=== PATIENT | female | born 1995 | race Caucasian/White ===

== ENCOUNTER 2017-10-03 00:12 | Emergency (ER) | payer MEDICAID ==
[~2017-10-03] VITALS: Ht 152.4 cm; Wt 52.2 kg
[2017-10-03 00:20] VITALS: Ht 152.4 cm; Wt 52.2 kg
[2017-10-03 03:36] LABS: microscopic required? NO
[2017-10-03 03:42] LABS: urine erythrocyte NEGATIVE (NEGATIVE)
[2017-10-03 03:43] LABS: BASOPHIL % 0.4 % (0-2); PLATELET COUNT 249 x10^3mcL (130-400); RED CELL DISTRIBUTION WIDTH 12.9 % (11.5-14.5)
[2017-10-03 03:50] LABS: AMPHETAMINE QUAL UR NONE DETECTED (NEG <=1000)
[2017-10-03 03:58] LABS: CALCIUM 8.7 mg/dL (8.5-10.1); CARBON DIOXIDE 22.5 mmol/L (21-32); CHLORIDE SERUM 108 mmol/L (98-107); CREATININE SERUM 0.7 mg/dL (0.6-1.0); GFR1 > 60 mL/min; GLUCOSE SERUM 98 mg/dL (74-106); POTASSIUM SERUM 3.8 mmol/L (3.5-5.1); SODIUM SERUM 140 mmol/L (136-145)
[2017-10-03 04:11] LABS: ALBUMIN 3.6 g/dL (3.4-5.0); ALKALINE PHOSPHATASE 92 U/L (46-116); ALT/SGPT 22 U/L (14-59); AST/SGOT 21 U/L (15-37); BILIRUBIN TOTAL 0.26 mg/dL (0.20-1.00); TOTAL PROTEIN, SERUM 7.7 g/dL (6.4-8.2)
[2017-10-03 06:19] VITALS: BP 101/54
== END 2017-10-03 06:19 | disposition left against medical advice (07) ==
LOC: ED 00:12
PROVIDERS: Emergency Medicine
DX: R56.9 Unspecified convulsions (principal)
CPT/HCPCS: 36415; 84439; G0480

== ENCOUNTER 2018-01-30 22:14 | Emergency (ER) | payer MEDICAID ==
[~2018-01-30] VITALS: Ht 152.4 cm; Wt 49.9 kg
[2018-01-30 22:18] VITALS: Ht 152.4 cm; Wt 49.9 kg
[2018-01-30 22:59] VITALS: BP 113/77
== END 2018-01-30 22:59 | disposition home or self-care (01) ==
LOC: ED 22:14
DX: G40.909 Epilepsy, unspecified, not intractable, without status epilepticus (principal)

== ENCOUNTER 2018-11-29 19:32 | Emergency (ER) | payer MEDICAID ==
[2018-11-29 19:47] VITALS: Ht 152.4 cm
[2018-11-29 21:13] VITALS: BP 108/77
== END 2018-11-29 21:13 | disposition home or self-care (01) ==
LOC: ED 19:32
DX: R50.9 Fever, unspecified (principal); R42 Dizziness and giddiness; R56.9 Unspecified convulsions; Z76.0 Encounter for issue of repeat prescription

== ENCOUNTER 2019-05-01 10:08 | Emergency (ER) | payer MEDICAID ==
[~2019-05-01] VITALS: Ht 154.9 cm; Wt 51.9 kg
[2019-05-01 10:36] VITALS: Ht 154.9 cm; Wt 51.9 kg
[2019-05-01 12:26] LABS: BASOPHIL % 0.5 % (0-2); PLATELET COUNT 232 x10^3mcL (130-400); RED CELL DISTRIBUTION WIDTH 12.9 % (11.5-14.5)
[2019-05-01 13:00] LABS: CALCIUM 9.2 mg/dL (8.5-10.1); CHLORIDE SERUM 109 mmol/L (98-107); CREATININE SERUM 0.9 mg/dL (0.6-1.0); GFR1 > 60 mL/min; GLUCOSE SERUM 92 mg/dL (74-106); POTASSIUM SERUM 3.8 mmol/L (3.5-5.1); SODIUM SERUM 142 mmol/L (136-145)
[2019-05-01 13:04] LABS: ALKALINE PHOSPHATASE 89 U/L (46-116); ALT/SGPT 23 U/L (14-59); AST/SGOT 15 U/L (15-37); BILIRUBIN TOTAL 0.16 mg/dL (0.20-1.00); TOTAL PROTEIN, SERUM 7.9 g/dL (6.4-8.2)
[2019-05-01 14:13] VITALS: BP 101/75
== END 2019-05-01 14:13 | disposition home or self-care (01) ==
LOC: ED 10:08
PROVIDERS: Emergency Medicine
DX: G40.909 Epilepsy, unspecified, not intractable, without status epilepticus (principal)
CPT/HCPCS: 36415

== ENCOUNTER 2019-05-17 21:12 | Emergency (ER) | payer MEDICAID ==
[~2019-05-17] VITALS: Ht 152.4 cm; Wt 49.9 kg
[2019-05-17 21:21] VITALS: Ht 152.4 cm; Wt 49.9 kg
[2019-05-17 21:47] LABS: BASOPHIL % 0.3 % (0-2); PLATELET COUNT 213 x10^3mcL (130-400); RED CELL DISTRIBUTION WIDTH 13.3 % (11.5-14.5)
[2019-05-17 21:59] LABS: CHLORIDE SERUM 108 mmol/L (98-107); CREATININE SERUM 0.7 mg/dL (0.6-1.0); GFR1 > 60 mL/min; GLUCOSE SERUM 75 mg/dL (74-106); POTASSIUM SERUM 3.8 mmol/L (3.5-5.1); SODIUM SERUM 144 mmol/L (136-145)
[2019-05-17 22:03] LABS: ALBUMIN 3.8 g/dL (3.4-5.0); ALKALINE PHOSPHATASE 89 U/L (46-116); ALT/SGPT 24 U/L (14-59); AST/SGOT 20 U/L (15-37); BILIRUBIN TOTAL 0.2 mg/dL (0.20-1.00); LIPASE 97 IU/L (73-393); TOTAL PROTEIN, SERUM 7.7 g/dL (6.4-8.2)
[2019-05-18 00:11] VITALS: BP 101/67
== END 2019-05-18 00:11 | disposition home or self-care (01) ==
LOC: ED 21:12
PROVIDERS: Emergency Medicine
DX: K29.70 Gastritis, unspecified, without bleeding (principal)
CPT/HCPCS: 36415; Q0092

== ENCOUNTER 2019-07-23 18:54 | Emergency (ER) | payer MEDICAID ==
[~2019-07-23] VITALS: Ht 152.4 cm; Wt 53.8 kg
[2019-07-23 19:08] VITALS: Ht 152.4 cm; Wt 53.8 kg
[2019-07-23 19:49] LABS: BASOPHIL % 0.5 % (0-2); PLATELET COUNT 212 x10^3mcL (130-400)
[2019-07-23 19:59] LABS: CALCIUM 8.7 mg/dL (8.5-10.1); CHLORIDE SERUM 110 mmol/L (98-107); CREATININE SERUM 0.8 mg/dL (0.6-1.0); GFR1 > 60 mL/min; GLUCOSE SERUM 80 mg/dL (74-106); POTASSIUM SERUM 3.9 mmol/L (3.5-5.1); SODIUM SERUM 142 mmol/L (136-145)
[2019-07-23 20:04] LABS: ALBUMIN 3.6 g/dL (3.4-5.0); ALKALINE PHOSPHATASE 86 U/L (46-116); ALT/SGPT 17 U/L (14-59); AST/SGOT 18 U/L (15-37); BILIRUBIN TOTAL 0.2 mg/dL (0.20-1.00); TOTAL PROTEIN, SERUM 7.6 g/dL (6.4-8.2)
[2019-07-23 20:47] LABS: AMPHETAMINE QUAL UR NONE DETECTED (See below)
[2019-07-23 23:14] VITALS: BP 100/66
== END 2019-07-23 23:14 | disposition home or self-care (01) ==
LOC: ED 18:54
PROVIDERS: Emergency Medicine
DX: G40.909 Epilepsy, unspecified, not intractable, without status epilepticus (principal); N76.0 Acute vaginitis; B37.3 Candidiasis of vulva and vagina
CPT/HCPCS: 36415; 87491; 87591

== ENCOUNTER 2019-09-23 07:30 | Emergency (ER) | payer MEDICAID ==
[~2019-09-23] VITALS: Ht 152.4 cm; Wt 52.2 kg
[2019-09-23 07:36] VITALS: Ht 152.4 cm; Wt 52.2 kg
[2019-09-23 08:01] LABS: BASOPHIL % 0.6 % (0-2); PLATELET COUNT 229 x10^3mcL (130-400); RED CELL DISTRIBUTION WIDTH 13.1 % (11.5-14.5)
[2019-09-23 08:13] LABS: CARBON DIOXIDE 25.2 mmol/L (21-32); CHLORIDE SERUM 107 mmol/L (98-107); CREATININE SERUM 0.9 mg/dL (0.6-1.0); GFR1 > 60 mL/min; GLUCOSE SERUM 97 mg/dL (74-106); POTASSIUM SERUM 3.9 mmol/L (3.5-5.1); SODIUM SERUM 141 mmol/L (136-145)
[2019-09-23 08:19] LABS: ALBUMIN 3.9 g/dL (3.4-5.0); ALKALINE PHOSPHATASE 87 U/L (46-116); ALT/SGPT 22 U/L (14-59); AST/SGOT 17 U/L (15-37); BILIRUBIN TOTAL 0.3 mg/dL (0.20-1.00); TOTAL PROTEIN, SERUM 8.2 g/dL (6.4-8.2)
[2019-09-23 13:32] VITALS: BP 101/64
== END 2019-09-23 13:32 | disposition home or self-care (01) ==
LOC: ED 07:30
PROVIDERS: Emergency Medicine
DX: R56.9 Unspecified convulsions (principal); R42 Dizziness and giddiness
CPT/HCPCS: 36415

== ENCOUNTER 2019-10-20 19:07 | Emergency (ER) | payer MEDICAID ==
[~2019-10-20] VITALS: Ht 152.4 cm; Wt 54.5 kg
[2019-10-20 20:08] LABS: BASOPHIL % 0.6 % (0-2); PLATELET COUNT 226 x10^3mcL (130-400); RED CELL DISTRIBUTION WIDTH 12.9 % (11.5-14.5)
[2019-10-20 20:18] LABS: CALCIUM 9.2 mg/dL (8.5-10.1); CARBON DIOXIDE 26.1 mmol/L (21-32); CHLORIDE SERUM 104 mmol/L (98-107); CREATININE SERUM 0.9 mg/dL (0.6-1.0); GFR1 > 60 mL/min; GLUCOSE SERUM 93 mg/dL (74-106); SODIUM SERUM 141 mmol/L (136-145)
[2019-10-20 20:23] LABS: ALBUMIN 4.1 g/dL (3.4-5.0); ALKALINE PHOSPHATASE 94 U/L (46-116); ALT/SGPT 24 U/L (14-59); AST/SGOT 19 U/L (15-37); BILIRUBIN TOTAL 0.18 mg/dL (0.20-1.00); LIPASE 151 IU/L (73-393); TOTAL PROTEIN, SERUM 8.4 g/dL (6.4-8.2)
[2019-10-20 23:10] LABS: microscopic required? YES; urine erythrocyte 3+ (NEGATIVE)
[2019-10-21 00:20] VITALS: BP 111/74
== END 2019-10-21 01:16 | disposition home or self-care (01) ==
LOC: ED 19:07
PROVIDERS: Emergency Medicine
DX: N39.0 Urinary tract infection, site not specified (principal); K59.00 Constipation, unspecified; G47.00 Insomnia, unspecified
CPT/HCPCS: 36415

== ENCOUNTER 2019-12-19 06:45 | Emergency (ER) | payer MEDICAID ==
[~2019-12-19] VITALS: Ht 152.4 cm; Wt 59.0 kg
[2019-12-19 06:57] VITALS: Ht 152.4 cm; Wt 59.0 kg
[2019-12-19 07:44] LABS: BASOPHIL % 0.6 % (0-2); PLATELET COUNT 211 x10^3mcL (130-400); RED CELL DISTRIBUTION WIDTH 13.4 % (11.5-14.5)
[2019-12-19 08:02] LABS: CALCIUM 8.6 mg/dL (8.5-10.1); CARBON DIOXIDE 28.5 mmol/L (21-32); CHLORIDE SERUM 105 mmol/L (98-107); CREATININE SERUM 0.8 mg/dL (0.6-1.0); GFR1 > 60 mL/min; GLUCOSE SERUM 96 mg/dL (74-106); POTASSIUM SERUM 4.4 mmol/L (3.5-5.1); SODIUM SERUM 140 mmol/L (136-145)
[2019-12-19 08:07] LABS: ALBUMIN 3.7 g/dL (3.4-5.0); ALKALINE PHOSPHATASE 84 U/L (46-116); ALT/SGPT 20 U/L (14-59); AST/SGOT 14 U/L (15-37); BILIRUBIN TOTAL 0.2 mg/dL (0.20-1.00); TOTAL PROTEIN, SERUM 7.2 g/dL (6.4-8.2)
[2019-12-19 10:02] VITALS: BP 117/78
== END 2019-12-19 10:07 | disposition home or self-care (01) ==
LOC: ED 06:45
PROVIDERS: Emergency Medicine
DX: G40.909 Epilepsy, unspecified, not intractable, without status epilepticus (principal)
CPT/HCPCS: 36415; Q0092

== ENCOUNTER 2020-02-15 21:04 | Emergency (ER) | payer MEDICAID | END 2020-02-15 22:08 | disposition left against medical advice (07) | LOC: ED 21:04 | DX: Z53.21 Procedure and treatment not carried out due to patient leaving prior to being seen by health care provider (principal) ==

== ENCOUNTER 2020-10-17 03:50 | Emergency (ER) | payer MEDICAID | END 2020-10-17 04:08 | disposition left against medical advice (07) | LOC: ED 03:50 | DX: Z53.21 Procedure and treatment not carried out due to patient leaving prior to being seen by health care provider (principal) ==

== ENCOUNTER 2020-11-02 03:32 | Emergency (ER) | payer MEDICAID, SELFPAY ==
[~2020-11-02] VITALS: Ht 167.6 cm; Wt 70.3 kg
[2020-11-02 03:37] VITALS: Ht 167.6 cm; Wt 70.3 kg
[2020-11-02 06:10] LABS: RED CELL DISTRIBUTION WIDTH 13.2 % (12.3-17.7)
[2020-11-02 06:13] LABS: BASOPHIL % 0.4 % (0.2-1.3); PLATELET COUNT 216 x10^3mcL (179-408)
[2020-11-02 07:37] VITALS: BP 106/66
== END 2020-11-02 07:37 | disposition home or self-care (01) ==
LOC: ED 03:32
PROVIDERS: Emergency Medicine
DX: O20.9 Hemorrhage in early pregnancy, unspecified (principal); O23.41 Unspecified infection of urinary tract in pregnancy, first trimester; Z3A.01 Less than 8 weeks gestation of pregnancy